=== PATIENT | male | born 1980 | race Caucasian/White ===

== ENCOUNTER 2017-01-07 13:25 | Emergency (ER) | payer BC ==
[2017-01-07] MEDS ORDERED: Lidocaine 1% with EPINEPHrine 1:100,000 50 ML MDV INFILT SCH (14:00)
[2017-01-07] MEDS ORDERED: Bacitracin Oint 1 GM U/D Packet TOP ONE (14:01)
--- NOTE | 2017-01-07 14:01 | EDM.PDOC ---
ED HPI GENERAL MEDICAL PROBLEM - General Chief Complaint: Laceration Stated Complaint: HAND INJURED WHILE USING A KNIFE Time Seen by Provider: 01/07/17 13:58 Source of Information: Reports: Patient History Limitations: Reports: No Limitations - History of Present Illness INITIAL COMMENTS - FREE TEXT/NARRATIVE: Pt cutting a zip tie with a utility knife when he cut his left hand. Occurred about 1245. Believes his tetanus is up to date. Is able to flex thumb and 1st finger. Bleeding has stopped at this time. Onset: Today Onset Date: 01/07/17 Onset Time: 12:45 Duration: Resolved Prior to Arrival (bleeding stopped) Quality: Reports: Burning Severity: Mild Improves with: Reports: None Worsens with: Reports: Movement Context: Reports: Trauma Associated Symptoms: Reports: No Other Symptoms left hand Pain Score (Numeric/FACES): 3 - Related Data Allergies Allergy/AdvReac Type Severity Reaction Status Date / Time No Known Allergies Allergy Verified 01/07/17 13:40 Home Meds: Home Meds NK [No Known Home Meds] 01/07/17 [History] Past Medical History - Past Surgical History HEENT Surgical History: Reports: Tonsillectomy, Other (See Below) Other HEENT Surgeries/Procedures: deviated septum GI Surgical History: Reports: Appendectomy Social & Family History - Tobacco Use Smoking Status *Q: Never Smoker - Recreational Drug Use Recreational Drug Use: No ED ROS GENERAL - Review of Systems Review Of Systems: See Below Constitutional: Reports: No Symptoms Skin: Reports: Other (laceration to left hand) ED EXAM, SKIN/RASH Exam: See Below Exam Limited By: No Limitations General Appearance: Alert, WD/WN, No Apparent Distress Skin: Wound/Incision (to top of left hand 1 inch in length. full thickness cut.) Course - Vital Signs Last Recorded V/S: Last Vital Signs Temp 98.6 F 01/07/17 13:40 Pulse 64 01/07/17 13:40 Resp 12 01/07/17 13:40 BP 151/87 H 01/07/17 13:40 Pulse Ox 96 01/07/17 13:40 - Orders/Labs/Meds Orders: Active Orders 24 hr Category Date Time Status Vaccines to be Administered [RC] PER UNIT ROUTINE Care 01/07/17 14:30 Active Lidocaine 1% w/EPINEPHrine [Xylocaine 1% with Med 01/07/17 14:00 Active EPINEPHrine 1:100,000] 3 ml INFILT STAT Medication Orders Lidocaine/Epinephrine (Xylocaine 1% With Epinephrine 1:100,000) 3 ml INFILT STAT [facility] Meds: Medications Generic Name Dose Route Start Last Admin Trade Name Freloree PRN Reason Stop Dose Admin Lidocaine/Epinephrine 3 ml 01/07/17 14:00 Xylocaine 1% With Epinephrine 1:100,000 INFILT STAT ESHA Discontinued Medications Generic Name Dose Route Start Last Admin Trade Name Freq PRN Reason Stop Dose Admin Bacitracin 1 dose 01/07/17 14:01 01/07/17 14:38 Bacitracin Oint 1 Gm TOP 01/07/17 14:02 1 dose ONETIME ONE Administration Diphtheria/Tetanus/Acell Pertussis 0.5 ml 01/07/17 14:30 01/07/17 14:38 Adacel IM 01/07/17 14:31 0.5 ml .ONCE ONE Administration Departure - Departure Time of Disposition: 14:53 Disposition: Home, Self-Care 01 Condition: Good Clinical Impression: Laceration of left hand Qualifiers: Encounter type: initial encounter Foreign body presence: without foreign body Qualified Code(s): S61.412A - Laceration without foreign body of left hand, initial encounter - Discharge Information Instructions: Laceration Care, Adult, [id number] Referrals: PCP,None [Primary Care Provider] - Forms: ED Department Discharge Additional Instructions: Tetanus updated with Tdap. Pt to return to clinic for suture removal in 10 days. Keep wound clean and dry. Monitor for infection. - Problem List & Annotations (1) Laceration of left hand SNOMED Code(s): 837181252 Code(s): S61.412A - LACERATION WITHOUT FOREIGN BODY OF LEFT HAND, INIT ENCNTR Status: Acute Priority: Medium Current Visit: Yes Qualifiers: Encounter type: initial encounter Foreign body presence: without foreign body Qualified Code(s): S61.412A - Laceration without foreign body of left hand, initial encounter - My Orders Last 24 Hours: My Active Orders 01/07/17 14:00 Lidocaine 1% w/EPINEPHrine [Xylocaine 1% with EPINEPHrine 1:100,000] 3 ml INFILT STAT 01/07/17 14:30 Vaccines to be Administered [RC] PER UNIT ROUTINE - Assessment/Plan Last 24 Hours: My Active Orders 01/07/17 14:00 Lidocaine 1% w/EPINEPHrine [Xylocaine 1% with EPINEPHrine 1:100,000] 3 ml INFILT STAT 01/07/17 14:30 Vaccines to be Administered [RC] PER UNIT ROUTINE
[2017-01-07] MEDS ORDERED: Diphtheria,Pertussis(Acell),Tetanus Vaccine 0.5 ML SDV IM ONE (14:30)
[2017-01-07 14:43] VITALS: BP 151/87
== END 2017-01-07 15:01 | disposition home or self-care (01) ==
LOC: JP.ED 13:25
DX: S61.412A Laceration without foreign body of left hand, initial encounter (principal); Z23 Encounter for immunization; W26.0XXA Contact with knife, initial encounter
CPT/HCPCS: 12001; 90471; 90715; 99283; A4217